=== PATIENT | male | born 1965 | race Caucasian/White ===

== ENCOUNTER 2018-10-18 10:54 | Day surgery (SDC) | payer OTHER ==
[2018-10-18] MEDS ORDERED: LIDOCAINE 1% 300 MG/30 ML SDV ONE (11:03)
[2018-10-18] MEDS ORDERED: BUPIVACAINE 0.5% 30 ML SDV ONE (11:03)
[2018-10-18] MEDS ORDERED: DEXAMETHASONE 10 MG/ML VIAL ONE (11:03)
[2018-10-18] MEDS ORDERED: ROPIVACAINE HCL 150 MG/30 ML INJ ONE (11:03)
[2018-10-18] MEDS ORDERED: BACITRACIN 50,000 UNITS/10 ML SYR IRR ONE (11:04)
[2018-10-18] MEDS ORDERED: LR 1,000 ML IV ONE (11:26)
[2018-10-18] MEDS ORDERED: ceFAZolin 2 GM/DEXTROSE 100 ML IV ONE (11:51)
[2018-10-18] MEDS ORDERED: MIDAZOLAM 2 MG/2 ML VIAL ONE (12:04)
--- NOTE | 2018-10-18 12:32 | PDHPUP ---
History & Physical Update H&P update statement: This history and physical update is based on an assessment of the patient which was completed after admission or registration (within 24 hours), but prior to the surgery/procedure. H&P update: H&P reviewed & patient examined (no changes in health), no change in patient's condition since H&P completed
[2018-10-18] MEDS ORDERED: MIDAZOLAM 2 MG/2 ML VIAL IVP ONE (12:36)
--- NOTE | 2018-10-18 12:36 | PDANEPAE ---
ANE History of Present Illness here for Right foot surgery for pain and bony dysfunction ANE Past Medical History - Cardiovascular History Hx Hypertension: Yes Hx Arrhythmias: No Hx Chest Pain: No Hx Coronary Artery / Peripheral Vascular Disease: No Hx CHF / Valvular Disease: No Hx Palpitations: No - Pulmonary History Hx COPD: No Hx Asthma/Reactive Airway Disease: No Hx Recent Upper Respiratory Infection: No Hx Oxygen in Use at Home: No Hx Sleep Apnea: No Sleep Apnea Screening Result - Last Documented: Positive - Neurologic History Hx Cerebrovascular Accident: No Hx Seizures: No Hx Dementia: No - Endocrine History Hx Diabetes: No - Renal History Hx Renal Disorders: No - Liver History Hx Hepatic Disorders: No - Neurological & Psychiatric Hx Hx Neurological and Psychiatric Disorders: No - Cancer History Hx Cancer: No - Congenital Disorder History Hx Congenital Disorders: No - GI History Hx Gastrointestinal Disorders: No - Other Health History Other Health History: none - Chronic Pain History Chronic Pain: No - Surgical History Prior Surgeries: none in last 5 yrs. left hip resurfaced 2008 ANE Review of Systems Review of Systems: - Exercise capacity METS (RN): 4 METS ANE Patient History - Allergies Allergies/Adverse Reactions: No Allergies [NKDA] Allergy (Verified 10/04/18 16:58) - Home Medications Home Medications: Lisinopril 10/04/18 [Last Taken 10/18/18] - NPO status NPO Since - Liquids (Date): 10/18/18 NPO Since - Liquids (Time): 09:00 NPO Since - Solids (Date): 10/17/18 NPO Since - Solids (Time): 20:00 - Smoking Hx Smoking Status: Smoker current status UNK - Family Anes Hx Family Hx Anesthesia Complications: none ANE Labs/Vital Signs - Vital Signs Blood Pressure: 145/100 Heart Rate: 64 Respiratory Rate: 23 O2 Sat (%): 98 Height: 177.8 cm Weight: 90.718 kg ANE Physical Exam - Airway Neck exam: FROM Mallampati Score: Class 2 Mouth exam: normal dental/mouth exam - Pulmonary Pulmonary: no respiratory distress, no rales or rhonchi - Cardiovascular Cardiovascular: regular rate and rhythym, no murmur, rub, or gallop - ASA Status ASA Status: II (Denies CP, SOB, headache, visual or auditory changes, syncop or near syncope. Baseline BP 130/90) ANE Anesthesia Plan Anesthesia Plan: GA w LMA, GA with mask Total IV Anesthesia: Yes
[2018-10-18] MEDS ORDERED: PROPOFOL/EMULSION 500 MG/50 ML BOTTLE IV ONE ×3 (12:40→13:05)
[2018-10-18] MEDS ORDERED: fentaNYL 100 MCG/2 ML INJ ONE (12:40)
[2018-10-18] MEDS ORDERED: MEPERIDINE 25 MG/0.5 ML AMP IVP PRN ×2 (12:47→15:32)
[2018-10-18] MEDS ORDERED: LABETALOL HCL 5 MG/ML 20 ML MDV IVP PRN (12:47)
[2018-10-18] MEDS ORDERED: fentaNYL 100 MCG/2 ML INJ IVP PRN ×2 (12:47→15:32)
[2018-10-18] MEDS ORDERED: HYDROmorphONE/DILAUDID 2 MG/ML INJ IVP PRN ×2 (12:47→15:32)
[2018-10-18] MEDS ORDERED: ONDANSETRON 4 MG/2 ML VIAL IVP PRN ×2 (12:47→15:32)
[2018-10-18] MEDS ORDERED: LR 500 ML IV PRN ×2 (12:47→15:32)
[2018-10-18] MEDS ORDERED: PHENYLEPHRINE HCL 100 MCG/ML SYR IVP PRN (12:47)
[2018-10-18] MEDS ORDERED: NALOXONE HCL 0.4 MG/ML INJ IVP PRN ×2 (12:47→15:32)
[2018-10-18] MEDS ORDERED: PROMETHAZINE HCL 25 MG/ML INJ IVP PRN (12:47)
[2018-10-18] MEDS ORDERED: PROPOFOL 200 MG/20 ML VIAL ONE (15:06)
[2018-10-18] MEDS ORDERED: ONDANSETRON 4 MG/2 ML VIAL ONE (15:22)
[2018-10-18] MEDS ORDERED: LIDOCAINE 2% 100 MG/5 ML SYR ONE (15:22)
[2018-10-18] MEDS ORDERED: DEXAMETHASONE 4 MG/ML VIAL ONE (15:22)
--- NOTE | 2018-10-18 15:31 | POSTOPPROG ---
Post Op Note Date of Operation: 10/18/18 Surgeon: Sylvie Singleton Pack Worker Supervisor: Mague singleton Anesthesiologist: derik Whitfield MD Pre-op Diagnosis: hallux valgus with hallux rigidus deformity right foot Post-op Diagnosis: same, with osteoarthritis first MTPJ Indication: pain first MTPJ Procedure: Arthrodesis first MTPJ with plate and screw fixation Findings: some DJD first MTPJ Inf/Abcess present in the surg proc area at time of surgery?: No Complications: none Specimen(s): soft tissue, chalky appearance suggestive of uric acid crystals, from first MTPJ
[2018-10-18] MEDS ORDERED: ENALAPRILAT DIHYDRATE 1.25 MG/ML VIAL IVP PRN (15:32)
[2018-10-18] MEDS ORDERED: HYDROCODONE/APAP 5/325 TAB PO PRN (15:32)
--- NOTE | 2018-10-18 15:34 | POSTANESTH ---
Post Anesthetic Evaluation Cardiovascular Status: Normal, Stable Respiratory Status: Normal, Stable Level of Consciousness/Mental Status: Can Participate in Eval, Alert and Oriented Pain Control: Adequate, Prn Tx Ordered Nausea/Vomiting Control: Adequate, Prn Tx Ordered Complications Possibly Related to Anesthesia: None Noted
[2018-10-18] MEDS ORDERED: ENOXAPARIN 30 MG/0.3 ML SYR SC SCH (15:35)
[2018-10-18 16:20] VITALS: BP 137/96
--- NOTE | 2018-10-18 21:10 | GOP ---
[f rep st] OPERATIVE REPORT DATE OF OPERATION: 10/18/2018 SURGEON: Sylvie Russo DPM INFANTRY UNIT LEADER: Mague Russo DPM. ANESTHESIA: IV sedation with local, light general. ANESTHESIOLOGIST: Armida Whitfield DO. PREOPERATIVE DIAGNOSIS: Painful hallux valgus and rigidus deformity, 2nd hammertoe deformity, all ri ght foot. 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 PROCEDURE PERFORMED: Arthrodesis of the 1st metatarsophalangeal joint with plate and screw fixation, hammertoe reduction with arthrodesis at the interphalangeal joint, all right foot. FINDINGS: DESCRIPTION OF PROCEDURE: The patient presents to the hospital approximately an hour and a half prio r to foot surgery after having been n.p.o. past midnight. The patient's preoperative history and phy sical and all prior studies were reviewed and there are no contraindications to the proposed procedur e. The patient was given Ancef 2 g 1/2 hour prior to foot surgery. The patient was taken to the OR room and placed on the OR table in a supine position where the approp riate anesthetic agents were administered. This was supplemented with a local block to the right sally t utilizing a total of 25 cc of a 1:1 mixture of 0.5% Naropin with 1% lidocaine plain given to the po sterior tibial nerve as it courses through the tarsal tunnel and also given in a Clark block fashion t o the base of the 1st and 2nd metatarsals. The right lower extremity was then prepped and draped in the usual aseptic fashion and covered with a sterile stockinette. A sterile pneumatic ankle tourniqu et was applied and padded well underneath with Webril. Utilizing elevation overlying Esmarch bandage , the right foot was exsanguinated, and the tourniquet was inflated to a pressure of 225 mmHg. The foot was then lowered to the orthopedic table and attention was directed to the 1st metatarsal ph alangeal joint where an approximate 6 cm linear longitudinal incision was made initiated just distal to the 1st metatarsophalangeal joint and extended proximally medial to the extensor hallucis longus t endon. The incision was deepened through the subcutaneous tissues to the level of the capsular tissu es taking care to preserve the neurovascular structures. Any bleeders were clamped and cauterized as needed. A linear capsular incision was made in the same plane as the skin incision and the capsular tissues were reflected off the head of the 1st metatarsal and base of the proximal phalanx and dista l shaft of the 1st metatarsal and proximal shaft of the phalanx. The hypertrophic bone to the medial aspect of the 1st metatarsal was resected tangential to the shaft of the metatarsal and placed on th e back table. There was also hypertrophic bone noted to the dorsal aspect of the 1st metatarsal and this was resected utilizing the sagittal saw. The 1st metatarsal phalangeal joint was inspected, and there was significant thinning of the articular cartilage and an osteochondral defect to the central aspect of the 1st metatarsal head. There was significant articular thinning to the base of the prox imal phalanx. Also noted to the 1st metatarsophalangeal joint was chalky material suggestive of uric acid crystals. Soft tissue within the tophaceous gout-like material was debrided and placed on the back table and sent for evaluation. The surgical site was copiously irrigated with a sterile saline bacitracin solution. The 1st metatarsal head was then exposed and a guidewire was placed through the central aspect of the head of the 1st metatarsal in a distal proximal fashion to serve as an axis gu jacey for the reamer provided by the [employer] system. The reamer was placed over the guidewire, and the articular cartilage was resected from the head of the 1st metatarsal to the level of subchondral bon e, removing all remaining articular cartilage. The guidewire was removed, and the surgical site was again copiously irrigated with sterile saline bacitracin solution. The remaining hypertrophic bone t o the rim of the 1st metatarsal head was resected with a rongeur. Attention was then directed to the base of the proximal phalanx of the hallux where a guidewire was placed through the central aspect o f the base to serve again as an axis guide. Placement of this pin and the pin to the 1st metatarsal was checked with a C-arm. Utilizing the reamer provided by the [employer] system, the articular cartila ge from the base of the proximal phalanx was resected to the level of subchondral bone. The K-wire w as removed, and any remaining prominence bony borders were resected with a rongeur were. The surgica l site was copiously irrigated with sterile saline bacitracin solution. The fusion site was then prepared on both sides by fenestrating the bone with a drill bit, and awl an d a mallet and osteotome and a mallet. Karis bone graft was then placed over the head of the 1st m etatarsal in a rectus alignment. A standard locking MTP plate was then placed over the fusion site a nd temporarily secured down with 2 olive pins followed by a K-wire placed across the fusion site in a proximal medial to a distal lateral direction. A C-arm was utilized to check alignment of the fusio n site, which was optimal. The K-wire for the headless 3.5 headless screw was then placed in a dista l medial to a proximal lateral direction entering the base of the proximal phalanx. Utilizing the st andard technique for the [employer] system, the 3.5 headless screw was placed measuring 26 mm in length. The guidewire and the other temporary K-wire was removed. The fusion site was checked with a C-arm and the fusion site was flush and in anatomic alignment. Attention was then directed to the distal aspect of the plate where drill holes were created into the proximal phalanx and the 3-0 locking scre ws measuring 12 mm in length were placed. Attention was then directed to the compression hole of the plate over the 1st metatarsal where a 3.0 cortical screw measuring 20 mm in length was prepared and placed. To the most proximal hole of the MTP plate, a 3.0 locking screw measuring 16 mm was placed. Attention was then directed to the distal hole to the 1st metatarsal where another 3.0 locking screw was placed measuring 18 mm in length. The last screw was placed distal to the fusion site, a 3.0 co rtical screw measuring 18 mm in length. Any remaining prominent bony borders were remodeled to a smo oth surface the medial aspect of the 1st metatarsal. The surgical site was copiously irrigated with a sterile saline bacitracin solution. Remaining Karis bone graft was placed to the dorsal medial a spect of the fusion site. The capsular tissues were reapproximated with 2-0 Vicryl utilizing simple interrupted sutures. The subcutaneous tissues reapproximated using 4-0 Monocryl. The skin was reapp roximated using 4-0 Prolene with interrupted horizontal mattress sutures. Attention was then directed to the dorsal aspect of the 2nd digit and an approximate 2 cm linear long itudinal incision was made centered over the proximal interphalangeal joint. The incision was deepen ed through the subcutaneous tissues to the level of the extensor tendon taking care to preserve neuro vascular structures. The extensor tendon was incised transversely overlying the proximal interphalan geal joint. It should be noted that the extensor tendon was normal in appearance distal to the proxi mal interphalangeal joint, however, proximal to the interphalangeal joint there was significant atrop hy of the extensor tendon. The capsular tissues to the head of the proximal phalanx and base of the phalanx were then reflected so as to expose the articular cartilage. It was noted at this time that there was an absence of the middle phalanx and only a distal phalanx present and a proximal phalanx. The articular cartilage was then excised from the tubular surfaces perpendicular to the shaft and pl aced on the back table. The surgical site was copiously irrigated with a sterile saline bacitracin s olution. A guide hole was made to the center aspect of the head of the proximal phalanx. A K-wire w as then advanced 1st through the central aspect of the base of the distal phalanx and exited the dist al tip of the 2nd digit. The distal phalanx was then held flush against the head of the proximal pha lanx, and the K-wire was retrograded proximally. The alignment was checked with the C-arm and optima l. A stab incision was made to the distal tip of the 2nd digit and a 2.4 OsteoMed screw measuring 30 mm in length was placed over the guidewire. The guidewire was removed and the tourniquet was releas ed with immediate cap refill to all digits and hemostasis. The surgical site was copiously irrigated with sterile saline bacitracin solution. Subcutaneous tissue reapproximated with a single Monocryl. The skin was reapproximated with 4-0 Prolene utilizing interrupted horizontal mattress sutures. A mildly compressive dry sterile gauze dressing was applied utilizing Xeroform, 4 x 4 gauze, Taye, Ker lix, and Aaron wraps. Patient tolerated the procedures and anesthesia well and transferred to the recovery room with vital signs stable and vascular status intact to the right lower extremity. In the recovery room, the edilia ent received postoperative oral and written home care instructions. The patient instructed to wear t he cast boot at all times when ambulating and is instructed on nonweightbearing on the forefoot, but can balance on the heel. The patient is to utilize crutches, a walker or rollabout for ambulation as sist. Prescriptions have been given for OxyContin and Percocet to take postoperatively as prescribed for pain management. Orders were written for the patient to receive Lovenox 30 mg subcutaneous inje ction prior to discharge. The patient was dispensed a Cryo Cuff and also instructed on its usage. P ostoperative radiographs were ordered. A prescription for Xarelto was called into the pharmacy this morning, and he is to begin the Xarelto tomorrow morning. Surgery went well without complications. He is scheduled for his 1st postoperative visit in 4 days. He is call the office earlier if any ques tions or problems should arise. /[id number]/MODL
== END 2018-10-18 16:35 | disposition home or self-care (01) ==
LOC: FSGY 10:54
PROVIDERS: ATTEND Podiatrist
PROC: 0SGP04Z Fusion of Right Toe Phalangeal Joint with Internal Fixation Device, Open Approach (ICD-10-PCS; principal; 2018-10-18 12:30)
PROC: 0SGM04Z Fusion of Right Metatarsal-Phalangeal Joint with Internal Fixation Device, Open Approach (ICD-10-PCS; principal; 2018-10-18 12:30)
PROC: 0QBQ0ZZ Excision of Right Toe Phalanx, Open Approach (ICD-10-PCS; principal; 2018-10-18 12:30)
DX: M20.11 Hallux valgus (acquired), right foot (principal); M20.21 Hallux rigidus, right foot; M20.41 Other hammer toe(s) (acquired), right foot; M19.071 Primary osteoarthritis, right ankle and foot; Q72.31 Congenital absence of right foot and toe(s)
CPT/HCPCS: 28285; 28750; C1769; C1713; C1762; J0690; J1100; J2001; J2250; J2405; J2704; J2795; J3010